=== PATIENT | female | born 1970 | race Caucasian/White ===

== ENCOUNTER → 2020-11-01 | Outpatient (REF) | payer MEDICARE ==
[~2020-11-01] MED LIST: DARV100T10; EFFE150C; LEXAPRO10 PO; SOMA350T
[2020-11-01 15:46] LABS: BASO % 0.8 % (0.0-1.0); EOS % 0.6 % (0.0-3.0); HEMATOCRIT 43.1 % (36.0-47.0); HEMOGLOBIN 13.8 g/dl (12.0-15.5); LYMPH # 1.3 10^3/uL (1.5-5.0); MEAN CORPUSCULAR HEMOGLOBIN 37.1 pg (27.0-33.0); MONO # 0.3 10^3/uL (0.0-0.8); MONO % 5.2 % (2.0-8.0); NEUTROPHILS # 3.3 10^3/uL (1.5-8.5); NEUTROPHILS % 67.2 % (36.0-66.0); PLATELET COUNT, AUTOMATED 226 10^3/uL (150-450); RED BLOOD COUNT 3.72 10^6/uL (4.00-5.40); WHITE BLOOD COUNT 4.8 10^3/uL (4.0-10.0)
[2020-11-01 15:48] LABS: MEAN CORPUSCULAR VOLUME 115.9 fl (80.0-96.0)
[2020-11-01 15:57] LABS: PROTHROMBIN TIME 49.8 SECONDS (12.5-14.3)
[2020-11-01 16:00] LABS: INR 5.3
[2020-11-01 16:15] LABS: ALBUMIN 4.3 GM/DL (3.2-5.2); ALT/SGPT 37 U/L (12-78); BILIRUBIN,TOTAL 0.3 MG/DL (0.2-1.0); BLOOD UREA NITROGEN 10 MG/DL (7-18); CARBON DIOXIDE LEVEL 24 MEQ/L (21-32); CHLORIDE LEVEL 111 MEQ/L (98-107); CHOLESTEROL LEVEL 135 MG/DL (<200); CHOLESTEROL RISK RATIO 2.596 (<5); CREATININE FOR GFR 0.88 MG/DL (0.55-1.30); FREE T4 0.74 NG/DL (0.76-1.46); GLOMERULAR FILTRATION RATE > 60.0 (>51); GLUCOSE, FASTING 105 MG/DL (70-100); HDL CHOLESTEROL 52 MG/DL (>40); LDL CHOLESTEROL 48 MG/DL (<100); NON-HDL-C 83 MG/DL; POTASSIUM SERUM 4.3 MEQ/L (3.5-5.1); SODIUM LEVEL 140 MEQ/L (136-145); TOTAL PROTEIN 7.1 GM/DL (6.4-8.2); TRIGLYCERIDES LEVEL 173 MG/DL (<150)
[2020-11-01 16:17] LABS: TOTAL 25(OH) VITAMIN D 9.4 NG/ML (30.0-100.0)
== END ==
LOC: M SFHCPLAZ 14:13
PROVIDERS: ATTEND Nurse Practitioner Family
DX: F41.8 Other specified anxiety disorders (principal); R53.82 Chronic fatigue, unspecified; K05.6 Periodontal disease, unspecified; Z51.81 Encounter for therapeutic drug level monitoring; Z79.01 Long term (current) use of anticoagulants; Z95.2 Presence of prosthetic heart valve; Z79.899 Other long term (current) drug therapy

== ENCOUNTER → 2020-11-22 | Outpatient (REF) | payer MEDICARE ==
[2020-11-22 13:55] LABS: INR 4.75; PROTHROMBIN TIME 45.7 SECONDS (12.5-14.3)
== END ==
LOC: M SFHCPLAZ 11:41
PROVIDERS: ATTEND Nurse Practitioner Family
DX: Z51.81 Encounter for therapeutic drug level monitoring (principal); R79.1 Abnormal coagulation profile; Z79.01 Long term (current) use of anticoagulants

== ENCOUNTER → 2020-12-14 | Outpatient (CLI) | payer MEDICARE ==
--- NOTE | 2020-12-14 10:12 | REP ---
INDICATION: CARDIOMEGALY. COMPARISON: None. TECHNIQUE: PA and lateral FINDINGS: The superior mediastinal structures are midline. The cardiac silhouette is unremarkable in size, shape, and position. There has been previous median sternotomy. Intracardiac radiodensities are present suggestive of cardiac valve replacement or valvulotomy. The diaphragmatic surfaces of the lungs are regular, and the costophrenic angles are clear. The pulmonary delarosa are clear. The imaged osseous structures are intact. IMPRESSION: There is no acute cardiopulmonary disease. <Electronically signed by Westley Conley > 12/14/20 [id number]
== END ==
LOC: M RAD 09:43
PROVIDERS: ATTEND Internal Medicine Cardiovascular Disease
DX: I51.7 Cardiomegaly (principal); Z95.2 Presence of prosthetic heart valve

== ENCOUNTER → 2023-04-09 | Outpatient (CLI) | payer MEDICARE ==
[2023-04-09 16:26] LABS: INR 2.54; PROTHROMBIN TIME 26.7 SECONDS (12.5-14.5)
== END ==
LOC: M LAB 15:34
DX: M54.16 Radiculopathy, lumbar region (principal); R74.01 Elevation of levels of liver transaminase levels; Z95.2 Presence of prosthetic heart valve

== ENCOUNTER → 2023-04-17 | Outpatient (CLI) | payer MEDICARE ==
[2023-04-17 17:50] LABS: INR 2.33
== END ==
LOC: M LAB 14:47
DX: M54.16 Radiculopathy, lumbar region (principal); Z95.2 Presence of prosthetic heart valve

== ENCOUNTER → 2023-05-09 | Outpatient (CLI) | payer MEDICARE | LOC: M RAD 08:20 | PROVIDERS: ATTEND Registered Nurse | DX: R74.8 Abnormal levels of other serum enzymes (principal) ==

== ENCOUNTER → 2024-02-05 | Outpatient (REF) | payer MEDICARE ==
[2024-02-05 17:17] LABS: BASO % 0.5 % (0.0-1.0); EOS # 0.1 10^3/uL (0.0-0.5); EOS % 1.5 % (0.0-3.0); HEMOGLOBIN 14.6 g/dl (12.0-15.5); LYMPH # 1.5 10^3/uL (1.5-5.0); LYMPH % 35.4 % (24.0-44.0); MEAN CORPUSCULAR HEMOGLOBIN 36.6 pg (27.0-33.0); MEAN CORPUSCULAR VOLUME 107.8 fl (80.0-96.0); MONO # 0.2 10^3/uL (0.0-0.8); MONO % 5.4 % (2.0-8.0); NEUTROPHILS # 2.3 10^3/uL (1.5-8.5); PLATELET COUNT, AUTOMATED 197 10^3/uL (150-450); RED BLOOD COUNT 3.99 10^6/uL (4.00-5.40); WHITE BLOOD COUNT 4.1 10^3/uL (4.0-10.0)
[2024-02-05 17:31] LABS: INR 2.12
[2024-02-05 17:46] LABS: ALBUMIN 4.8 G/DL (3.2-5.2); ALKALINE PHOSPHATASE 85 U/L (46-116); ALT/SGPT 33 U/L (7.0-40); AST/SGOT 21 U/L (<34); BILIRUBIN,TOTAL 0.5 MG/DL (0.3-1.2); BLOOD UREA NITROGEN 17 MG/DL (9-23); CALCIUM LEVEL 9.4 MG/DL (8.5-10.1); CARBON DIOXIDE LEVEL 24 MMOL/L (20-31); CHLORIDE LEVEL 108 MMOL/L (98-107); GLOMERULAR FILTRATION RATE > 60.0 (>51); GLUCOSE, FASTING 87 MG/DL (60-100); POTASSIUM SERUM 4.1 MMOL/L (3.5-5.1); SODIUM LEVEL 139 MMOL/L (136-145); TOTAL PROTEIN 7.3 G/DL (5.7-8.2)
== END ==
LOC: M LAB REF 16:40
PROVIDERS: ATTEND Family Medicine Addiction Medicine
DX: Z79.01 Long term (current) use of anticoagulants (principal)

== ENCOUNTER → 2024-02-12 | Outpatient (REF) | payer MEDICARE ==
[2024-02-12 17:18] LABS: INR 2.36
== END ==
LOC: M LAB REF 16:10
PROVIDERS: ATTEND Family Medicine Addiction Medicine
DX: Z95.2 Presence of prosthetic heart valve (principal)

== ENCOUNTER → 2024-02-24 | Outpatient (REF) | payer MEDICARE ==
[2024-02-24 12:11] LABS: INR 1.83; PROTHROMBIN TIME 20.5 SECONDS (12.5-14.5)
== END ==
LOC: M LAB REF 11:17
PROVIDERS: ATTEND Family Medicine Addiction Medicine
DX: Z79.01 Long term (current) use of anticoagulants (principal)

== ENCOUNTER 2024-03-28 19:44 | Emergency (ER) | payer MEDICARE ==
[2024-03-28 20:00] VITALS: BP 116/63; TEMP 97.6
[2024-03-28] MEDS: NS 1,000 ML IV ONE (20:40)
[2024-03-28] MEDS: MORPHINE 4 MG/ML 1ML VIAL IV ONE (20:41)
[2024-03-28] MEDS: ONDANSETRON 4MG 2ML VIAL IV ONE (20:41)
[2024-03-28 20:57] LABS: BASO % 0.3 % (0.0-1.0); EOS % 0.2 % (0.0-3.0); HEMATOCRIT 36.4 % (36.0-47.0); HEMOGLOBIN 12.1 g/dl (12.0-15.5); LYMPH # 1.1 10^3/uL (1.5-5.0); LYMPH % 11.2 % (24.0-44.0); MEAN CORPUSCULAR HEMOGLOBIN 36.3 pg (27.0-33.0); MEAN CORPUSCULAR HGB CONC 33.2 g/dl (32.0-36.5); MEAN CORPUSCULAR VOLUME 109.3 fl (80.0-96.0); MONO # 0.8 10^3/uL (0.0-0.8); MONO % 8.4 % (2.0-8.0); NEUTROPHILS # 7.7 10^3/uL (1.5-8.5); NEUTROPHILS % 79.6 % (36.0-66.0); PLATELET COUNT, AUTOMATED 177 10^3/uL (150-450); RED BLOOD COUNT 3.33 10^6/uL (4.00-5.40); WHITE BLOOD COUNT 9.6 10^3/uL (4.0-10.0)
[2024-03-28 21:02] LABS: ERYTHROCYTE SEDIMENTATION RATE 49 mm/hr (0-30)
[2024-03-28 21:25] LABS: CK-MB VALUE MASS < 1.0 NG/ML (<3.6)
[2024-03-28 21:26] LABS: BLOOD UREA NITROGEN 11 MG/DL (9-23); CALCIUM LEVEL 8.8 MG/DL (8.5-10.1); CARBON DIOXIDE LEVEL 27 MMOL/L (20-31); CHLORIDE LEVEL 104 MMOL/L (98-107); CPK CREATINE PHOSPHOKINASE 29 U/L (34-145); CREATININE FOR GFR 0.87 MG/DL (0.55-1.30); GLOMERULAR FILTRATION RATE > 60.0 (>51); GLUCOSE, FASTING 117 MG/DL (60-100); MB/CK RELATIVE INDEX 3.44 (< OR =4); SODIUM LEVEL 136 MMOL/L (136-145)
[2024-03-28] MEDS: methylPREDNISolone 125MG 2ML VIAL IV ONE (22:54)
[2024-03-28] MEDS: KETOROLAC 30 MG/ML 1ML VIAL IV ONE (22:55)
[2024-03-29] MEDS ORDERED: HYDR-3713 PO (00:25)
[2024-03-29] MEDS ORDERED: MEDR4PAK PO (00:25)
[2024-03-29] MEDS: NORCO 5/325MG TABLET (HOME DOSE PACK) PO ONE (00:43)
[2024-03-29 00:45] VITALS: O2SAT 95
== END 2024-03-29 00:45 | disposition home or self-care (01) ==
LOC: EDBD 19:44 → M ED 19:44
DX: M51.26 Other intervertebral disc displacement, lumbar region (principal); Z88.0 Allergy status to penicillin; Z79.899 Other long term (current) drug therapy
CPT/HCPCS: 72125; 72128; 72131; 80048; 82550; 82553; 83735; 84100; 84484; 85025; 85652; 86140; 87486; 87581; 87633; 87798; 87880; 93005; 96374; 96375; 99284; J1885; J2405; J2919

== ENCOUNTER 2024-04-01 23:45 | Emergency (ER) | payer MEDICARE ==
[~2024-04-01 23:45] MED LIST changes: +HYDR-3713 PO; +MEDR4PAK PO
[2024-04-02 01:40] VITALS: BP 130/63; TEMP 96.7; O2SAT 98
== END 2024-04-02 05:17 | disposition left against medical advice (07) ==
LOC: M ED 23:45 → EDBD 23:45 → M ED 04-02 05:17
DX: Z53.21 Procedure and treatment not carried out due to patient leaving prior to being seen by health care provider (principal)

== ENCOUNTER 2024-04-05 15:09 | Emergency (ER) | payer MEDICARE ==
[~2024-04-05] VITALS: Ht 162.6 cm; Wt 58.6 kg
[2024-04-05 15:11] VITALS: BP 105/64; TEMP 97.5; O2SAT 97
[2024-04-05] MEDS ORDERED: CYCL-707 (16:03)
[2024-04-05] MEDS ORDERED: HYDR-4571 (16:03)
[2024-04-06] MEDS ORDERED: TRAZ-252 (17:54)
[2024-04-06] MEDS ORDERED: QUET100T2 (17:54)
[2024-04-06] MEDS ORDERED: WARF-21 (17:54)
== END 2024-04-05 17:50 | disposition left against medical advice (07) ==
LOC: M ED 15:09
DX: Z53.21 Procedure and treatment not carried out due to patient leaving prior to being seen by health care provider (principal)

== ENCOUNTER 2024-04-06 17:35 | Emergency (ER) | payer MEDICARE ==
[~2024-04-06] VITALS: Ht 162.6 cm; Wt 55.1 kg
[~2024-04-06 17:35] MED LIST changes: +CYCL-707; +HYDR-4571
[2024-04-06] MEDS ORDERED: TRAZ-252 (17:54)
[2024-04-06] MEDS ORDERED: WARF-21 (17:54)
[2024-04-06] MEDS ORDERED: QUET100T2 (17:54)
[2024-04-06] MEDS: MORPHINE 4 MG/ML 1ML VIAL IV ONE (23:13)
[2024-04-07 00:54] LABS: BASO % 0.4 % (0.0-1.0); EOS % 0.2 % (0.0-3.0); HEMATOCRIT 39.6 % (36.0-47.0); HEMOGLOBIN 13.4 g/dl (12.0-15.5); LYMPH # 1.5 10^3/uL (1.5-5.0); LYMPH % 14.2 % (24.0-44.0); MEAN CORPUSCULAR HEMOGLOBIN 36.1 pg (27.0-33.0); MEAN CORPUSCULAR HGB CONC 33.8 g/dl (32.0-36.5); MEAN CORPUSCULAR VOLUME 106.7 fl (80.0-96.0); MONO % 9.9 % (2.0-8.0); NEUTROPHILS # 7.8 10^3/uL (1.5-8.5); NEUTROPHILS % 74.7 % (36.0-66.0); PLATELET COUNT, AUTOMATED 214 10^3/uL (150-450); RED BLOOD COUNT 3.71 10^6/uL (4.00-5.40); WHITE BLOOD COUNT 10.4 10^3/uL (4.0-10.0)
[2024-04-07] MEDS: HYDROMORPHONE HCL 0.5 MG/ 0.5 ML SYRINGE IV PRN (01:57)
[2024-04-07 02:26] LABS: BLOOD UREA NITROGEN 16 MG/DL (9-23); CALCIUM LEVEL 8.8 MG/DL (8.5-10.1); CARBON DIOXIDE LEVEL 26 MMOL/L (20-31); CHLORIDE LEVEL 100 MMOL/L (98-107); CREATININE FOR GFR 0.87 MG/DL (0.55-1.30); GLOMERULAR FILTRATION RATE > 60.0 (>51); GLUCOSE, FASTING 81 MG/DL (60-100); POTASSIUM SERUM 3.9 MMOL/L (3.5-5.1); SODIUM LEVEL 133 MMOL/L (136-145)
[2024-04-07] MEDS ORDERED: ISOVUE-370 76% 100ML VIAL As Ordered ONE (02:27)
[2024-04-07] MEDS: methylPREDNISolone 125MG 2ML VIAL IV ONE (03:49)
[2024-04-07] MEDS: DOXYCYCLINE HYCLATE 100 MG in D5W MINI-BAG PLUS 100 ML IV ONE (05:34)
[2024-04-07] MEDS: KETOROLAC 30 MG/ML 1ML VIAL IV ONE (05:34)
[2024-04-07] MEDS ORDERED: OXYC1TAB23 PO (05:35)
[2024-04-07] MEDS ORDERED: DOXY-323 PO (05:35)
[2024-04-07 05:53] VITALS: BP 131/69; TEMP 97.9; O2SAT 96
== END 2024-04-07 06:12 | disposition home or self-care (01) ==
LOC: EDBD 17:35 → M ED 17:35
DX: L03.114 Cellulitis of left upper limb (principal); M25.512 Pain in left shoulder; F41.9 Anxiety disorder, unspecified; F32.A Depression, unspecified; Z88.0 Allergy status to penicillin; Z79.2 Long term (current) use of antibiotics; Z79.899 Other long term (current) drug therapy
CPT/HCPCS: 73206; 80048; 83605; 85025; 96374; 96375; 99285; J1170; J1885; J2919; Q9967

== ENCOUNTER → 2024-04-12 | Outpatient (REF) | payer MEDICARE ==
[~2024-04-12] MED LIST changes: +DOXY-323 PO; +OXYC1TAB23 PO; +QUET100T2; +TRAZ-252; +WARF-21
[2024-04-12 12:40] LABS: INR 1.87; PROTHROMBIN TIME 20.9 SECONDS (12.5-14.5)
== END ==
LOC: M LAB REF 12:16
PROVIDERS: ATTEND Family Medicine Addiction Medicine
DX: Z79.01 Long term (current) use of anticoagulants (principal)

== ENCOUNTER → 2024-05-21 | Outpatient (REF) | payer MEDICARE ==
[2024-05-21 17:07] LABS: INR 1.14; PROTHROMBIN TIME 14.2 SECONDS (12.5-14.5)
== END ==
LOC: M LAB REF 16:25
PROVIDERS: ATTEND Family Medicine Addiction Medicine
DX: Z95.4 Presence of other heart-valve replacement (principal)

== ENCOUNTER → 2024-05-24 | Outpatient (REF) | payer MEDICARE ==
[2024-05-24 11:40] LABS: INR 1.71; PROTHROMBIN TIME 19.5 SECONDS (12.5-14.5)
== END ==
LOC: M LAB REF 11:12
PROVIDERS: ATTEND Family Medicine Addiction Medicine
DX: Z95.4 Presence of other heart-valve replacement (principal)

== ENCOUNTER → 2024-05-27 | Outpatient (REF) | payer MEDICARE ==
[2024-05-27 12:00] LABS: INR 2.23; PROTHROMBIN TIME 23.9 SECONDS (12.5-14.5)
== END ==
LOC: M LAB REF 11:23
PROVIDERS: ATTEND Family Medicine Addiction Medicine
DX: Z95.4 Presence of other heart-valve replacement (principal)

== ENCOUNTER → 2024-06-25 | Outpatient (REF) | payer MEDICARE ==
[~2024-06-25] MED LIST changes: -DOXY-323 PO; +DOXY-441 PO
[2024-06-25 17:37] LABS: INR 1.76; PROTHROMBIN TIME 20.7 SECONDS (12.5-14.5)
== END ==
LOC: M LAB REF 16:22
PROVIDERS: ATTEND Family Medicine Addiction Medicine
DX: Z95.4 Presence of other heart-valve replacement (principal)

== ENCOUNTER → 2024-07-09 | Outpatient (REF) | payer MEDICARE ==
[2024-07-09 16:43] LABS: INR 2.16; PROTHROMBIN TIME 24.2 SECONDS (12.5-14.5)
== END ==
LOC: M LAB REF 16:20
PROVIDERS: ATTEND Family Medicine Addiction Medicine
DX: Z95.4 Presence of other heart-valve replacement (principal)

== ENCOUNTER → 2024-07-23 | Outpatient (REF) | payer MEDICARE ==
[2024-07-23 17:33] LABS: INR 1.78; PROTHROMBIN TIME 20.9 SECONDS (12.5-14.5)
== END ==
LOC: M LAB REF 16:38
PROVIDERS: ATTEND Family Medicine Addiction Medicine
DX: Z51.81 Encounter for therapeutic drug level monitoring (principal); Z79.01 Long term (current) use of anticoagulants

== ENCOUNTER → 2024-07-28 | Outpatient (REF) | payer MEDICARE ==
[2024-07-28 16:44] LABS: INR 2.25
== END ==
LOC: M LAB REF 16:11
PROVIDERS: ATTEND Family Medicine Addiction Medicine
DX: Z95.4 Presence of other heart-valve replacement (principal)

== ENCOUNTER → 2024-08-19 | Outpatient (REF) | payer MEDICARE ==
[2024-08-19 16:26] LABS: INR 3.46; PROTHROMBIN TIME 34.6 SECONDS (12.5-14.5)
[2024-08-19 16:28] LABS: BLOOD UREA NITROGEN 22 MG/DL (9-23); CARBON DIOXIDE LEVEL 27 MMOL/L (20-31); CHLORIDE LEVEL 103 MMOL/L (98-107); CREATININE FOR GFR 0.86 MG/DL (0.55-1.30); GLOMERULAR FILTRATION RATE > 60.0 (>51); GLUCOSE, FASTING 108 MG/DL (60-100); POTASSIUM SERUM 5.7 MMOL/L (3.5-5.1); SODIUM LEVEL 140 MMOL/L (136-145)
== END ==
LOC: M LAB REF 16:08
PROVIDERS: ATTEND Family Medicine Addiction Medicine
DX: Z95.4 Presence of other heart-valve replacement (principal); E87.1 Hypo-osmolality and hyponatremia

== ENCOUNTER → 2024-08-26 | Outpatient (REF) | payer MEDICARE ==
[2024-08-26 16:17] LABS: BLOOD UREA NITROGEN 17 MG/DL (9-23); CALCIUM LEVEL 9.9 MG/DL (8.5-10.1); CARBON DIOXIDE LEVEL 27 MMOL/L (20-31); CHLORIDE LEVEL 105 MMOL/L (98-107); CREATININE FOR GFR 0.69 MG/DL (0.55-1.30); GLOMERULAR FILTRATION RATE > 60.0 (>51); GLUCOSE, FASTING 111 MG/DL (60-100); POTASSIUM SERUM 5.1 MMOL/L (3.5-5.1); SODIUM LEVEL 138 MMOL/L (136-145)
[2024-08-26 16:18] LABS: INR 2.79; PROTHROMBIN TIME 29.4 SECONDS (12.5-14.5)
== END ==
LOC: M LAB REF 15:56
PROVIDERS: ATTEND Physician Assistant
DX: Z79.01 Long term (current) use of anticoagulants (principal)

== ENCOUNTER → 2024-09-29 | Outpatient (REF) | payer MEDICARE ==
[2024-09-29 13:37] LABS: INR 2.26
== END ==
LOC: M LAB REF 13:02
PROVIDERS: ATTEND Family Medicine Addiction Medicine
DX: Z79.01 Long term (current) use of anticoagulants (principal)

== ENCOUNTER → 2024-10-08 | Outpatient (REF) | payer MEDICARE ==
[2024-10-08 12:35] LABS: BASO # 0.1 10^3/uL (0.0-0.2); BASO % 1.2 % (0.0-1.0); EOS # 0.1 10^3/uL (0.0-0.5); EOS % 1.3 % (0.0-3.0); HEMATOCRIT 42.8 % (36.0-47.0); HEMOGLOBIN 14.4 g/dl (12.0-15.5); LYMPH # 1.6 10^3/uL (1.5-5.0); LYMPH % 29.9 % (24.0-44.0); MEAN CORPUSCULAR HEMOGLOBIN 34.4 pg (27.0-33.0); MEAN CORPUSCULAR HGB CONC 33.6 g/dl (32.0-36.5); MEAN CORPUSCULAR VOLUME 102.4 fl (80.0-96.0); MONO # 0.3 10^3/uL (0.0-0.8); MONO % 5.8 % (2.0-8.0); NEUTROPHILS # 3.2 10^3/uL (1.5-8.5); NEUTROPHILS % 61.6 % (36.0-66.0); PLATELET COUNT, AUTOMATED 243 10^3/uL (150-450); RED BLOOD COUNT 4.18 10^6/uL (4.00-5.40); WHITE BLOOD COUNT 5.2 10^3/uL (4.0-10.0)
[2024-10-08 12:53] LABS: INR 3.33; PROTHROMBIN TIME 33.6 SECONDS (12.5-14.5)
[2024-10-08 13:13] LABS: ALBUMIN 4.5 G/DL (3.2-5.2); ALKALINE PHOSPHATASE 81 U/L (35-104); ALT/SGPT 78 U/L (7.0-40); AST/SGOT 59 U/L (<34); BILIRUBIN,TOTAL 0.5 MG/DL (0.3-1.2); BLOOD UREA NITROGEN 17 MG/DL (9-23); CALCIUM LEVEL 9.4 MG/DL (8.5-10.1); CARBON DIOXIDE LEVEL 23 MMOL/L (20-31); CHLORIDE LEVEL 109 MMOL/L (98-107); CHOLESTEROL LEVEL 248 MG/DL (<200); CHOLESTEROL RISK RATIO 4.06 (<5); CREATININE FOR GFR 0.74 MG/DL (0.55-1.30); GLOMERULAR FILTRATION RATE > 60.0 (>51); GLUCOSE, FASTING 117 MG/DL (60-100); POTASSIUM SERUM 4.4 MMOL/L (3.5-5.1); SODIUM LEVEL 142 MMOL/L (136-145); TOTAL PROTEIN 7.6 G/DL (5.7-8.2); TRIGLYCERIDES LEVEL 265 MG/DL (<150)
[2024-10-08 13:16] LABS: FREE T4 1.31 NG/DL (0.89-1.76); THYROID STIMULATING HORMONE 1.165 uIU/ML (0.55-4.78)
== END ==
LOC: M LAB REF 12:30
PROVIDERS: ATTEND Family Medicine Addiction Medicine
DX: Z79.01 Long term (current) use of anticoagulants (principal); Z79.899 Other long term (current) drug therapy

== ENCOUNTER → 2024-10-15 | Outpatient (REF) | payer MEDICARE ==
[2024-10-15 13:03] LABS: INR 2.41; PROTHROMBIN TIME 26.3 SECONDS (12.5-14.5)
== END ==
LOC: M LAB REF 12:39
PROVIDERS: ATTEND Family Medicine Addiction Medicine
DX: Z95.4 Presence of other heart-valve replacement (principal); E87.1 Hypo-osmolality and hyponatremia; R73.9 Hyperglycemia, unspecified

== ENCOUNTER → 2024-11-12 | Outpatient (REF) | payer MEDICARE ==
[2024-11-12 12:49] LABS: INR 2.55; PROTHROMBIN TIME 27.4 SECONDS (12.5-14.5)
== END ==
LOC: M LAB REF 12:32
PROVIDERS: ATTEND Family Medicine Addiction Medicine
DX: Z79.01 Long term (current) use of anticoagulants (principal)

== ENCOUNTER → 2024-12-13 | Outpatient (REF) | payer MEDICARE ==
[2024-12-13 12:54] LABS: INR 1.76; PROTHROMBIN TIME 20.7 SECONDS (12.5-14.5)
== END ==
LOC: M LAB REF 12:33
PROVIDERS: ATTEND Family Medicine Addiction Medicine
DX: Z95.4 Presence of other heart-valve replacement (principal); E87.1 Hypo-osmolality and hyponatremia

== ENCOUNTER → 2024-12-21 | Outpatient (REF) | payer MEDICARE ==
[2024-12-21 14:15] LABS: INR 2.86
== END ==
LOC: M LAB REF 13:25
PROVIDERS: ATTEND Family Medicine Addiction Medicine
DX: Z79.01 Long term (current) use of anticoagulants (principal)

== ENCOUNTER → 2025-03-02 | Outpatient (REF) | payer MEDICARE ==
[~2025-03-02] MED LIST changes: +ACET-1349 PO; +BENA25CA4 PO; +CEPH500C PO; -CYCL-707; +CYCL-707 PO; -QUET100T2; +QUET100T2 PO; +VENL-37 PO; +WARF4TAB52 PO
[2025-03-02 14:31] LABS: INR 2.49
== END ==
LOC: M LAB REF 14:05
PROVIDERS: ATTEND Family Medicine Addiction Medicine
DX: E87.1 Hypo-osmolality and hyponatremia (principal); Z95.4 Presence of other heart-valve replacement

== ENCOUNTER → 2025-03-07 | Outpatient (REF) | payer MEDICARE ==
[~2025-03-07] MED LIST changes: -ACET-1349 PO; -BENA25CA4 PO; -CEPH500C PO; +CYCL-707; -CYCL-707 PO; +QUET100T2; -QUET100T2 PO; -VENL-37 PO; -WARF4TAB52 PO
[2025-03-07 12:32] LABS: INR 1.86
== END ==
LOC: M LAB REF 12:06
PROVIDERS: ATTEND Family Medicine Addiction Medicine
DX: Z95.4 Presence of other heart-valve replacement (principal); E87.1 Hypo-osmolality and hyponatremia

== ENCOUNTER → 2025-03-25 | Outpatient (REF) | payer MEDICARE ==
[~2025-03-25] MED LIST changes: +ACET-1349 PO; +BENA25CA4 PO; +CEPH500C PO; -CYCL-707; +CYCL-707 PO; +EQL0.65S NARES; +LEVO75TAB PO; +PANT40TA29 PO; +PRED10TA2 PO; -QUET100T2; +QUET100T2 PO; +SUCR1TA PO; +VENL-37 PO; +WARF4TAB52 PO
[2025-03-25 12:36] LABS: INR 1.38
== END ==
LOC: M LAB REF 12:19
PROVIDERS: ATTEND Family Medicine Addiction Medicine
DX: Z79.01 Long term (current) use of anticoagulants (principal); Z95.4 Presence of other heart-valve replacement

== ENCOUNTER → 2025-03-28 | Outpatient (REF) | payer MEDICARE ==
[2025-03-28 14:18] LABS: INR 1.87
== END ==
LOC: M LAB REF 13:58
PROVIDERS: ATTEND Family Medicine Addiction Medicine
DX: E87.1 Hypo-osmolality and hyponatremia (principal); Z95.4 Presence of other heart-valve replacement

== ENCOUNTER → 2025-03-31 | Outpatient (REF) | payer MEDICARE ==
[2025-03-31 14:49] LABS: INR 2.02
== END ==
LOC: M LAB REF 14:24
PROVIDERS: ATTEND Family Medicine Addiction Medicine
DX: E87.1 Hypo-osmolality and hyponatremia (principal); Z95.4 Presence of other heart-valve replacement

== ENCOUNTER → 2025-04-06 | Outpatient (REF) | payer MEDICARE ==
[2025-04-06 12:22] LABS: INR 2.27
== END ==
LOC: M LAB REF 12:01
PROVIDERS: ATTEND Family Medicine Addiction Medicine
DX: E87.1 Hypo-osmolality and hyponatremia (principal); Z95.4 Presence of other heart-valve replacement

== ENCOUNTER → 2025-04-20 | Outpatient (REF) | payer MEDICARE ==
[2025-04-20 14:52] LABS: INR 2.37
== END ==
LOC: M LAB REF 14:20
PROVIDERS: ATTEND Family Medicine Addiction Medicine
DX: Z95.4 Presence of other heart-valve replacement (principal); E78.1 Pure hyperglyceridemia

== ENCOUNTER → 2025-05-04 | Outpatient (REF) | payer MEDICARE ==
[2025-05-04 11:58] LABS: INR 2.78
== END ==
LOC: M LAB REF 11:42
PROVIDERS: ATTEND Family Medicine Addiction Medicine
DX: E87.1 Hypo-osmolality and hyponatremia (principal); Z95.4 Presence of other heart-valve replacement

== ENCOUNTER → 2025-06-03 | Outpatient (REF) | payer MEDICARE ==
[2025-06-03 12:57] LABS: INR 4.21
== END ==
LOC: M LAB REF 12:36
PROVIDERS: ATTEND Family Medicine Addiction Medicine
DX: Z95.4 Presence of other heart-valve replacement (principal); E87.1 Hypo-osmolality and hyponatremia

== ENCOUNTER → 2025-06-10 | Outpatient (REF) | payer MEDICARE ==
[2025-06-10 14:39] LABS: INR 2.32
== END ==
LOC: M LAB REF 14:20
PROVIDERS: ATTEND Family Medicine Addiction Medicine
DX: E87.1 Hypo-osmolality and hyponatremia (principal); Z95.4 Presence of other heart-valve replacement

== ENCOUNTER → 2025-06-16 | Outpatient (REF) | payer MEDICARE ==
[2025-06-16 13:51] LABS: INR 1.91
== END ==
LOC: M LAB REF 13:31
PROVIDERS: ATTEND Family Medicine Addiction Medicine
DX: E87.1 Hypo-osmolality and hyponatremia (principal); Z95.4 Presence of other heart-valve replacement

== ENCOUNTER → 2025-06-28 | Outpatient (REF) | payer MEDICARE ==
[2025-06-28 12:42] LABS: INR 2.05
== END ==
LOC: M LAB REF 11:43
PROVIDERS: ATTEND Family Medicine Addiction Medicine
DX: Z95.4 Presence of other heart-valve replacement (principal); E78.1 Pure hyperglyceridemia

== ENCOUNTER → 2025-07-07 | Outpatient (REF) | payer MEDICARE ==
[2025-07-07 15:02] LABS: INR 3.13
== END ==
LOC: M LAB REF 14:25
PROVIDERS: ATTEND Family Medicine Addiction Medicine
DX: Z95.4 Presence of other heart-valve replacement (principal); E87.1 Hypo-osmolality and hyponatremia

== ENCOUNTER → 2025-07-14 | Outpatient (REF) | payer MEDICARE ==
[2025-07-14 14:51] LABS: INR 2.11
== END ==
LOC: M LAB REF 14:09
PROVIDERS: ATTEND Family Medicine Addiction Medicine
DX: Z95.4 Presence of other heart-valve replacement (principal)

== ENCOUNTER → 2025-08-11 | Outpatient (REF) | payer MEDICARE ==
[2025-08-11 17:12] LABS: INR 2.84
== END ==
LOC: M LAB REF 16:12
PROVIDERS: ATTEND Family Medicine Addiction Medicine
DX: E87.1 Hypo-osmolality and hyponatremia (principal); Z95.4 Presence of other heart-valve replacement